=== PATIENT | male | born 1995 | race Caucasian/White ===

== ENCOUNTER 2016-07-04 16:50 | Emergency (ER) | payer OTHER ==
[~2016-07-04] VITALS: Ht 188 cm; Wt 77.0 kg
[~2016-07-04 16:50] MED LIST: IBUP-1050 PO
--- NOTE | 2016-07-04 17:05 | EMERGENCY ROOM VISIT NOTE ---
History Report prepared by Kacey: Shon Berkowitz Under the Supervision of: Dr. Cale Mcpherson M.D. First contact with patient: 16:52 Chief Complaint: ALCOHOL OVERDOSE Stated Complaint: ETOH History of Present Illness The patient is a 21 year old male who presents to the Emergency Room via EMS with complaints of an alcohol overdose. This HPI is limited secondary to intoxication. Per EMS, the patient was found unconscious in someone's yard. 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 Past Medical & Surgical Unable to obtain secondary to intoxication Family History Unable to obtain secondary to intoxication. Social History Smoking Status: Never Smoker Alcohol Use: occasionally Marital Status: single Occupation Status: [employer] student Current/Historical Medications No Active Prescriptions or Reported Meds Allergies Coded Allergies: No Known Allergies (Unverified , 12/11/13) Physical Exam Vital Signs Date Time Temp Pulse Resp B/P Pulse Ox O2 Delivery O2 Flow Rate FiO2 07/04/16 22:58 76 18 111/59 98 Room Air 07/04/16 22:07 82 16 95 Room Air 07/04/16 21:31 81 14 Room Air 07/04/16 21:19 86 07/04/16 20:04 75 16 127/58 97 Room Air 07/04/16 18:50 73 22 126/77 97 Room Air 07/04/16 17:13 100 07/04/16 17:07 36.8 90 22 130/80 97 Room Air Physical Exam GENERAL: Patient is heavily intoxicated. Smells of alcohol. Well appearing and in no acute distress. Large amount of mud and multiple abrasions to the head and chin. HEAD: NC EYES: Injected conjunctiva. Normal EOM. Pupils equal/reactive. ENT: Mucous membranes moist, no nasal congestion, . NECK: No step-offs, no adenopathy, no meningismus, trachea is midline. LUNGS: No dyspnea. Clear to auscultation and equal bilaterally. No wheeze, no rhonchi. HEART: Regular rate and rhythm. No murmurs, rubs, gallops appreciated. ABDOMEN: Soft, nontender, bowel sounds positive, no masses appreciated, no peritonitis. BACK: No midline tenderness, no CVA tenderness EXTREMITIES: Normal motion all extremities, no cyanosis, no edema. NEUROLOGIC: Heavily intoxicated. Slurred speech. No acute motor or sensory deficits, no focal weakness, cranial nerves grossly intact. GCS 13. SKIN: No rash, no jaundice, no diaphoresis. Medical Decision & Procedures ER Provider Diagnostic Interpretation: Radiology results are stated below per my review and radiologist interpretation: CT HEAD WITHOUT CONTRAST (CT) CLINICAL HISTORY: Head trauma with facial contusions. Alcohol overdose. COMPARISON STUDY: 12/11/2013 TECHNIQUE: Axial CT of the brain is performed from the vertex to the skull base. IV contrast was not administered for this examination. CT DOSE: FINDINGS: No intra or extra-axial mass lesions are visualized. There is no CT evidence of acute cortical infarction. There is no evidence of midline shift. There is no acute hemorrhage. No calvarial fractures are visualized. There is no evidence of pathologic ventricular dilatation. There is no evidence of acute sinusitis IMPRESSION: Normal noncontrast head CT. Electronically signed by: Florian Centeno M.D. 07/04/2016 7:51 PM Dictated Date/Time: 07/04/2016 7:[address] OF THE CERVICAL SPINE CLINICAL HISTORY: Neck pain status post trauma. Alcohol overdose. COMPARISON STUDY: No previous studies for comparison. CT DOSE: 1097.96 mGy.cm TECHNIQUE: CT scan of the cervical spine was performed from the skull base to the thoracic inlet. Images are reviewed in the axial, sagittal, and coronal planes. IV contrast was not administered for this examination. FINDINGS: The visualized portions of the lung apices reveal no evidence of pneumothorax. The prevertebral soft tissues are normal. No fractures or subluxations are visualized. IMPRESSION: No evidence of acute fracture or traumatic subluxation. Electronically signed by: Florian Centeno M.D. 07/04/2016 7:53 PM Dictated Date/Time: 07/04/2016 7:51 PM Laboratory Results 07/04/16 17:14 Test 07/04/16 17:14 Anion Gap 11.0 mmol/L (3-11) Est Creatinine Clear Calc Drug Dose 146.3 ml/min Estimated GFR () 143.0 Estimated GFR (Non- 123.4 BUN/Creatinine Ratio 14.6 (10-20) Calcium Level 8.6 mg/dl (8.5-10.1) Ethyl Alcohol mg/dL 359.0 mg/dl (0-3) Laboratory results as reviewed by me. Medications Administered Medications (Trade) Dose Ordered Sig/Nithin Route Start Time Stop Time Status Last Admin Dose Admin Lorazepam (Ativan Inj) 2 mg NOW STAT IM 07/04/16 17:21 07/04/16 17:23 DC 07/04/16 17:26 2 MG Haloperidol Lactate (Haldol Inj) 10 mg NOW STAT IM 07/04/16 17:21 07/04/16 17:23 DC 07/04/16 17:27 10 MG ED Course 1652: The patient was evaluated in room A9. A complete history and physical exam was performed. 1720: The patient has become more combative and aggressive. We will chemically and physically restrain him for his own safety. 172: Ordered Haldol Inj 10 mg IM, Ativan Inj 2 mg IM 1744: The patient has begun to calm down. 1808: He is now sleeping soundly. 2: After reevaluating, the patient is still sleeping. 183: I rechecked the patient while making my rounds. He continues to be asleep. 1951: Upon reassessment, the patient remains asleep. 2011: He is still sleeping. 2345: The patient is sleeping soundly. He is in no distress. 2350: The patient is now awake, alert, oriented, and answering questions appropriately. We will observe him for a few more minutes before we evaluate him to be sent home with his friends. 0006: Reevaluated the patient. Discussed results and discharge instructions: He verbalized understanding and agreement. The patient is ready for discharge. Medical Decision Differential: Alcohol Intoxication, Drug Intoxication, Electrolyte Abnormality, Trauma, Intracranial Event, Toxicological, Excited Delirium, Serotonin Syndrome , amongst other pathologies entertained. 21 yr old intoxicated aggressively combative male brought in by EMS after found falling in a back yard. Patient with right facial contusion/chin abrasion and given heavily intoxicated felt that CT was necessary of head/neck. Patient continued being combative and I was unable to verbally deescalate nor re-direct the patient. The patient's combative behavior was risking a catastrophe. To protect the staff and the patient from harm it was necessary to chemically restrain the patient. Protecting airway and breathing comfortably throughout ED stay. EtOH positive. Monitored and discharged with friends when awake, alert, oriented and denies any complaints. I had long discussion with patient making clear the dangers of his actions. Impression Primary Impression: Alcohol abuse Additional Impressions: Alcohol use with intoxication Combative behavior Head injury, closed Critical Care I have personally spent greater than 30 minutes of critical care time in the direct management of this patient. This was a life/limb threatening event. This includes time spent evaluating patient, direct bedside care, chart review, placing orders, interpretation of diagnostic studies, discussion with consultants, patient, and family members, as well as other required patient management activities. These 30 minutes is in excess of all separately billable procedures. Scribe Attestation The scribe's documentation has been prepared under my direction and personally reviewed by me in its entirety. I confirm that the note above accurately reflects all work, treatment, procedures, and medical decision making performed by me. Departure Information Dispostion Home / Self-Care Prescriptions No Active Prescriptions or Reported Meds Referrals [facility] (PCP) Forms HOME CARE DOCUMENTATION FORM, IMPORTANT VISIT INFORMATION Patient Instructions Alcohol Intoxication - [facility], [facility]: [employer] Students and Alcohol Related Visits , My [facility] Additional Instructions You were severely combative with staff and had to be physically and chemically restrained to protect you and the staff of the Emergency Department. The medications given to you can sometimes cause side effects of muscle stiffness and twitching the next day. If you have concerns please return to Emergency Department for further evaluation. A CT Scan of your Head and Neck was done as you were heavily intoxicated with evident of head trauma. Fortunately these studies were normal without fractures nor bleeding founds. Your Alcohol Level in your blood was over 4.5 times the legal limit. Problem Qualifiers Additional Impressions: Head injury, closed Encounter type: initial encounter Qualified Codes: S09.90XA - Unspecified injury of head, initial encounter
[2016-07-04 17:07] VITALS: Ht 188 cm; Wt 77.0 kg
[2016-07-04] MEDS ORDERED: LORAZEPAM 2 MG/ML 1 ML VIAL IM STA (17:21)
[2016-07-04] MEDS ORDERED: HALOPERIDOL LACTATE 5 MG/ML 1 ML VIAL IM STA (17:21)
[2016-07-04 17:48] LABS: BUN/CREATININE RATIO 14.6 (10-20); CALCIUM 8.6 mg/dl (8.5-10.1); CREATININE 0.87 mg/dl (0.60-1.40); POTASSIUM 3.6 mmol/L (3.5-5.1)
--- NOTE | 2016-07-04 19:53 | DIAGNOSTIC IMAGING REPORT ---
CT HEAD WITHOUT CONTRAST (CT) CLINICAL HISTORY: Head trauma with facial contusions. Alcohol overdose. COMPARISON STUDY: 12/11/2013 TECHNIQUE: Axial CT of the brain is performed from the vertex to the skull base. IV contrast was not administered for this examination. CT DOSE: FINDINGS: No intra or extra-axial mass lesions are visualized. There is no CT evidence of acute cortical infarction. There is no evidence of midline shift. There is no acute hemorrhage. No calvarial fractures are visualized. There is no evidence of pathologic ventricular dilatation. There is no evidence of acute sinusitis IMPRESSION: Normal noncontrast head CT. Electronically signed by: Florian Centeno M.D. 07/04/2016 7:51 PM Dictated Date/Time: 07/04/2016 7:50 PM
--- NOTE | 2016-07-04 19:55 | DIAGNOSTIC IMAGING REPORT ---
CT OF THE CERVICAL SPINE CLINICAL HISTORY: Neck pain status post trauma. Alcohol overdose. COMPARISON STUDY: No previous studies for comparison. CT DOSE: 1097.96 mGy.cm TECHNIQUE: CT scan of the cervical spine was performed from the skull base to the thoracic inlet. Images are reviewed in the axial, sagittal, and coronal planes. IV contrast was not administered for this examination. FINDINGS: The visualized portions of the lung apices reveal no evidence of pneumothorax. The prevertebral soft tissues are normal. No fractures or subluxations are visualized. IMPRESSION: No evidence of acute fracture or traumatic subluxation. Electronically signed by: Florian Centeno M.D. 07/04/2016 7:53 PM Dictated Date/Time: 07/04/2016 7:51 PM
[2016-07-05 01:08] VITALS: BP 132/78; PULSE 100; TEMP 36.8; O2SAT 98
== END 2016-07-05 01:09 | disposition home or self-care (01) ==
LOC: EDBD 16:50 → C.EDA 16:51
DX: F10.129 Alcohol abuse with intoxication, unspecified (principal); Y90.8 Blood alcohol level of 240 mg/100 ml or more; S09.90XA Unspecified injury of head, initial encounter; W19.XXXA Unspecified fall, initial encounter; Y92.89 Other specified places as the place of occurrence of the external cause; F91.9 Conduct disorder, unspecified